=== PATIENT | male | born 1990 | race Two or more races ===

== ENCOUNTER 2020-02-12 01:39 | Emergency (ER) | payer SELFPAY ==
[~2020-02-12] VITALS: Ht 177.8 cm; Wt 90.7 kg
[2020-02-12 01:36] VITALS: BP 136/86
--- NOTE | 2020-02-12 01:41 | NUR ---
ED Nurse Note: pt refusing to be seen by , states his cousin is here to pick him up. pt is AOx4, reports having mixed alcohol and THC like this before and wants to leave at this time. risks of leaving were explained to pt, he verablized understanding and still wants to leave without being evaluated, refusing everything at this time. pt is ambulatory with steady gait, left with all belongings
--- NOTE | 2020-02-12 01:52 | Emergency Room Report ---
History of Present Illness General Chief Complaint: To Be Triaged Source: Patient Present Illness HPI This a 29-year-old male who presents with chief complaint of shortness of breath and panic attack. He said he drank too much alcohol tonight. Also smokes marijuana. He called 911 because he could not breathe and felt dizzy. Initially sales specialist said that his vital signs were stable and he declined transport. He was in the car with his cousin and called 911 again. By time he got here he did not want to stay and want to leave. He said this happened to him before. He said he went to the hospital and they could not find anything and discharge him. He does not want to be in the ER. So he left with his cousin. I did not see this patient other than taking a quick history while he was in the ambulance bay. 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 Patient History Past Medical History: see triage record, old chart reviewed Past Surgical History: none Pertinent Family History: none Social History: Reports: alcohol use Immunizations: other Reviewed Nursing Documentation: PMH: Agreed; PSxH: Agreed Review of Systems Respiratory: Reports: shortness of breath Cardiovascular: Reports: palpitations All Other Systems: negative except mentioned in HPI Physical Exam Vital Signs Date Time Temp Pulse Resp B/P (MAP) Pulse Ox O2 Delivery O2 Flow Rate FiO2 02/12/20 01:36 110 18 136/86 (103) 99 Room Air Medical Decision Making Diagnostic Impression: Primary Impression: Substance abuse Additional Impression: Panic attack ER Course This patient initially called 911 for panic attack and shortness of breath. He change his mind once he got here. Other than a quick history, I did not see this patient. Last Vital Signs Date Time Temp Pulse Resp B/P (MAP) Pulse Ox O2 Delivery O2 Flow Rate FiO2 02/12/20 01:36 110 18 136/86 (103) 99 Room Air Status: unchanged Disposition: LEFT W/OUT BEING SEEN Condition: Stable Jayson Escamilla MD Feb 12, 2020 01:52
== END 2020-02-12 02:11 | disposition left against medical advice (07) ==
LOC: EDBD 01:39 → EMR 02:10
DX: F41.0 Panic disorder [episodic paroxysmal anxiety] (principal); R06.02 Shortness of breath; F19.10 Other psychoactive substance abuse, uncomplicated; Z53.21 Procedure and treatment not carried out due to patient leaving prior to being seen by health care provider